=== PATIENT | male | born 1970 | race Caucasian/White ===

== ENCOUNTER 2018-04-09 10:03 | Emergency (ER) | payer SELFPAY ==
[2018-04-09] MEDS: KETOROLAC 30 MG INJ IM (12:17)
[2018-04-09] MEDS: HYDROCODONE/APAP (10/325) TAB PO (12:17)
[2018-04-09] MEDS: predniSONE 20 MG TAB PO (12:17)
== END 2018-04-09 13:00 | disposition home or self-care (01) ==
LOC: FTE 10:03
DX: M54.41 Lumbago with sciatica, right side (principal)
CPT/HCPCS: 96372; 99284-25